=== PATIENT | male | born 1980 | race Caucasian/White ===

== ENCOUNTER 2021-11-09 16:20 | Emergency (ER) | payer MEDICAID | END 2021-11-09 20:40 | disposition left against medical advice (07) | LOC: ER1 16:20 | DX: R53.83 Other fatigue (principal); K08.89 Other specified disorders of teeth and supporting structures; L97.429 Non-pressure chronic ulcer of left heel and midfoot with unspecified severity; L97.411 Non-pressure chronic ulcer of right heel and midfoot limited to breakdown of skin; Z86.19 Personal history of other infectious and parasitic diseases; F17.210 Nicotine dependence, cigarettes, uncomplicated | CPT/HCPCS: 96361; 96374; 96375; 99283; J1885 ==